=== PATIENT | male | born 1950 | race Caucasian/White ===

== ENCOUNTER 2019-08-04 12:54 | Emergency (ER) | payer MEDICARE, OTHER ==
[2019-08-04] MEDS ORDERED: Sodium Chloride 0.9% 2.5 ML Syringe FLUSH PRN (13:14)
[2019-08-04] MEDS ORDERED: Lactated Ringers 1,000 ML IV ONE (13:14)
[2019-08-04] MEDS ORDERED: Sodium Chloride 0.9% 10 ML Syringe FLUSH PRN (13:14)
--- NOTE | 2019-08-04 13:19 | EDM.PDOC ---
ED HPI GENERAL MEDICAL PROBLEM - General Chief Complaint: General Stated Complaint: BOWEL OBSTRUCTION Time Seen by Provider: 08/04/19 13:09 - History of Present Illness INITIAL COMMENTS - FREE TEXT/NARRATIVE: History of present illness: Patient presents with inability to have bowel movement chronic constipation and suspicion of small bowel obstruction from the primary care office. He has been seeing his primary care practitioner about his difficulty with stooling today he had some labs drawn and an x-ray showed an ileus with a suspicion for small bowel obstruction. He was sent over the emergency department with these fin dings patient states been several days of dull bellyache no vomiting he has had some bowel movements past last few days but his stooling has been very difficult. Eyes any prior abdominal surgeries he denies any other medical problems nothing seems to make it better or worse Review of systems: As per history of present illness and below otherwise all systems reviewed and negative. Past medical history: As per history of present illness and as reviewed below otherwise noncontributory. Surgical history: As per history of present illness and as reviewed below otherwise noncontributory. Social history: No reported history of drug or alcohol abuse. Family history: As per history of present illness and as reviewed below otherwise noncontributory. Physical exam: HEENT: Atraumatic, normocephalic, pupils reactive, negative for conjunctival pallor or scleral icterus, mucous membranes moist, throat clear, neck supple, nontender, trachea midline. Lungs: Clear to auscultation, breath sounds equal bilaterally, chest nontender. Heart: S1S2, regular, negative for clicks, rubs, or JVD. Abdomen: Soft, mild distention, nontender. Negative for masses or hepatosplenomegaly. Negative for costovertebral tenderness. Pelvis: Stable nontender. Genitourinary: Deferred. Rectal: Deferred. Extremities: Atraumatic, negative for cords or calf pain. Neurovascular unremarkable. Neuro: Awake, alert, oriented. Cranial nerves II through XII unremarkable. Cerebellum unremarkable. Motor and sensory unremarkable throughout. Exam nonfocal. Diagnostics: [] Therapeutics: [] Impression: [] Plan: CT abdomen and pelvis will be obtained and patient will be reassessed. [] Definitive disposition and diagnosis as appropriate pending reevaluation and review of above. - Related Data Allergies Allergy/AdvReac Type Severity Reaction Status Date / Time No Known Allergies Allergy Verified 08/04/19 13:08 ED ROS GENERAL - Review of Systems Review Of Systems: See Below ED EXAM, GENERAL - Physical Exam Exam: See Below Course - Vital Signs Text/Narrative:: 3:20 PM the patient was reexamined his abdomen is soft and nontender. He says he feels fine he says he was able to pass a large amount of gas while in the ED. CT scan of the abdomen pelvis read by radiology as nonobstructive suspicious for possible ileus. I recommend the patient stay in the hospital under observation with his dilated loops of bowel he declines at this time he feels reassured that he does not have an obstructive pattern he wants to go home I recommend clear liquid diet with plenty of ambulation to help pass gas and mobilize his colon. Return to the ED if worsening follow-up with a primary care doctor. Last Recorded V/S: Last Vital Signs Temp 36.6 C 08/04/19 13:09 Pulse 67 08/04/19 13:09 Resp 17 08/04/19 13:09 BP 140/89 08/04/19 13:09 Pulse Ox 96 08/04/19 13:09 - Orders/Labs/Meds Orders: Active Orders 24 hr Category Date Time Status Lactated Ringers [Ringers, Lactated] 1,000 ml Med 08/04/19 13:14 Active IV ASDIRECTED Sodium Chloride 0.9% [Saline Flush] Med 08/04/19 13:14 Active 10 ml FLUSH ASDIRECTED PRN Sodium Chloride 0.9% [Saline Flush] Med 08/04/19 13:14 Active 2.5 ml FLUSH ASDIRECTED PRN Saline Lock Insert [OM.PC] Stat Oth 08/04/19 13:14 Ordered Medication Orders Lactated Ringer's (Ringers, Lactated) 1,000 mls @ 125 mls/hr IV ASDIRECTED ONE Stop: 08/04/19 21:13 Last Admin: 08/04/19 13:32 Dose: 125 mls/hr Documented by: [id number] Sodium Chloride (Saline Flush) 10 ml FLUSH ASDIRECTED PRN PRN Reason: Keep Vein Open Last Admin: 08/04/19 13:33 Dose: 10 ml Documented by: [email or web address] Sodium Chloride (Saline Flush) 2.5 ml FLUSH ASDIRECTED PRN PRN Reason: Keep Vein Open Last Admin: 08/04/19 13:33 Dose: 2.5 ml Documented by: [email or web address] Meds: Medications Generic Name Dose Route Start Last Admin Trade Name Freq PRN Reason Stop Dose Admin Lactated Ringer's 1,000 mls @ 125 mls/hr 08/04/19 13:14 08/04/19 13:32 Ringers, Lactated IV 08/04/19 21:13 125 mls/hr ASDIRECTED ONE Administration Sodium Chloride 10 ml 08/04/19 13:14 08/04/19 13:33 Saline Flush FLUSH 10 ml ASDIRECTED PRN Administration Keep Vein Open Sodium Chloride 2.5 ml 08/04/19 13:14 08/04/19 13:33 Saline Flush FLUSH 2.5 ml ASDIRECTED PRN Administration Keep Vein Open Discontinued Medications Generic Name Dose Route Start Last Admin Trade Name Freq PRN Reason Stop Dose Admin Iopamidol 75 ml 08/04/19 14:29 08/04/19 14:31 Isovue Multipack-370 (76%) IVPUSH 08/04/19 14:30 75 ml ONETIME STA Administration Departure - Departure Time of Disposition: 15:22 Disposition: Home, Self-Care 01 Condition: Good Clinical Impression: Adynamic ileus Constipation Qualifiers: Constipation type: chronic idiopathic constipation Qualified Code(s): K59.04 - Chronic idiopathic constipation - Discharge Information *PRESCRIPTION DRUG MONITORING PROGRAM REVIEWED*: Not Applicable *COPY OF PRESCRIPTION DRUG MONITORING REPORT IN PATIENT RYAN: Not Applicable Instructions: Constipation, Adult Referrals: PCP,None [Primary Care Provider] - Forms: ED Department Discharge Additional Instructions: The following information is given to patients seen in the emergency department who are being discharged to home. This information is to outline your options for follow-up care. We provide all patients seen in our emergency department with a follow-up referral. The need for follow-up, as well as the timing and circumstances, are variable depending upon the specifics of your emergency department visit. If you don't have a primary care physician on staff, we will provide you with a referral. We always advise you to contact your personal physician following an emergency department visit to inform them of the circumstance of the visit and for follow-up with them and/or the need for any referrals to a consulting specialist. The emergency department will also refer you to a specialist when appropriate. This referral assures that you have the opportunity for follow-up care with a specialist. All of these measure are taken in an effort to provide you with optimal care, which includes your follow-up. Under all circumstances we always encourage you to contact your private physician who remains a resource for coordinating your care. When calling for follow-up care, please make the office aware that this follow-up is from your recent emergency room visit. If for any reason you are refused follow-up, please contact the [facility] Emergency Department at and asked to speak to the emergency department charge nurse. Sepsis Event Note (ED) - Evaluation Sepsis Screening Result: No Definite Risk - Focused Exam Vital Signs: Vital Signs Temp Pulse Resp BP Pulse Ox 08/04/19 13:09 36.6 C 67 17 140/89 96 - My Orders Last 24 Hours: My Active Orders 08/04/19 13:14 Lactated Ringers [Ringers, Lactated] 1,000 ml IV ASDIRECTED Sodium Chloride 0.9% [Saline Flush] 10 ml FLUSH ASDIRECTED PRN Sodium Chloride 0.9% [Saline Flush] 2.5 ml FLUSH ASDIRECTED PRN Saline Lock Insert [OM.PC] Stat - Assessment/Plan Last 24 Hours: My Active Orders 08/04/19 13:14 Lactated Ringers [Ringers, Lactated] 1,000 ml IV ASDIRECTED Sodium Chloride 0.9% [Saline Flush] 10 ml FLUSH ASDIRECTED PRN Sodium Chloride 0.9% [Saline Flush] 2.5 ml FLUSH ASDIRECTED PRN Saline Lock Insert [OM.PC] Stat
[2019-08-04] MEDS ORDERED: Iopamidol 755 MG/ML 500 ML Multipack Bottle IVPUSH STA (14:29)
--- NOTE | 2019-08-04 14:42 | CT ---
CT abdomen and pelvis Technique: Multiple axial sections were obtained from above the dome of the diaphragm inferiorly through the pubic symphysis. Intravenous contrast was utilized. No oral contrast has been given. Delayed images were also obtained through the abdomen and pelvis. Comparison: No prior abdominal imaging is available. Findings: Visualized lung bases show nothing acute. Cyst is noted within the right lobe of the liver measuring 4.7 cm. 2nd cyst is noted more inferiorly within right lobe of the liver measuring 1.2 cm. No additional abnormalities are seen within the liver. Spleen appears within normal limits. Adrenal glands show no nodule. Kidneys show symmetric contrast enhancement. Small cortical lesions are seen believed to represent cysts. Larger cyst is located within the left kidney measuring 2.1 cm. Pancreas is within normal limits. Small hiatal hernia seen. Aorta shows atherosclerotic calcification without aneurysm. No retroperitoneal adenopathy or mesenteric abnormalities are seen. Diffuse gas noted within the colon with lesser amount of gas within small bowel. Findings have the appearance of an ileus. No pelvic mass or adenopathy is seen. Minimal sigmoid diverticulosis without diverticulitis is seen. Delayed images shows contrast excretion into the ureters as well as contrast noted within the bladder. Bone window settings were reviewed which shows scattered degenerative change within the spine with no acute osseous finding. Impression: 1. Increased gas within small bowel and colon. Findings most likely due to mild ileus. Finding at this time do not appear to be obstructive. 2. Other findings as noted above believed to be chronic and nonacute. Diagnostic code #3 This report was dictated in MDT
== END 2019-08-04 15:36 | disposition home or self-care (01) ==
LOC: MW.ED 12:54
DX: K59.04 Chronic idiopathic constipation (principal); K56.0 Paralytic ileus
CPT/HCPCS: 74177; 99284; J7120; Q9967; 99283

== ENCOUNTER 2019-09-08 09:12 | Day surgery (SDC) | payer MEDICARE, OTHER ==
[~2019-09-08 09:12] MED LIST: Lactated Ringers 1,000 ML IV SCH
[2019-09-08] MEDS ORDERED: fentaNYL 100 MCG/2 ML SDV ONE (09:32)
[2019-09-08] MEDS ORDERED: Propofol 200 MG/20 ML SDV ONE (09:32)
[2019-09-08] MEDS ORDERED: Midazolam 1 MG/ML 2 ML SDV ONE (09:32)
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
[2019-09-08] MEDS ORDERED: Glycopyrrolate 0.2 MG/ML SDV ONE (12:03)
--- NOTE | 2019-09-08 12:22 | PCM.OPNOTE ---
- General Post-Op/Procedure Note Date of Surgery/Procedure: 09/08/19 Findings: see [id number] Pre Op Diagnosis: change in bowel habits and gerd Anesthesia Technique: Moderate Sedation Primary Surgeon: Linwood Davis Pathology: egd bx Complications: None Condition: Good
--- NOTE | 2019-09-08 13:14 | OR ---
SURGEON: Linwood Davis MD DATE OF PROCEDURE: 09/08/2019 PREOPERATIVE DIAGNOSES: Change in bowel habit and acid reflux. POSTOPERATIVE DIAGNOSES: Change in bowel habit and acid reflux. PROCEDURES PERFORMED: Esophagogastroduodenoscopy with biopsy and colonoscopy. DESCRIPTION OF PROCEDURE: EGD: The patient was taken to the endoscopy room, and with the OFFICE ASSISTANT, Diprivan was administered. A well-lubricated EGD scope was gently inserted through the oropharynx, down the esophagus, passing through the gastroesophageal junction, into the stomach. The mucosa was examined upon the passage. Any etiology will be noted. Once in the stomach, we continued to advance to the distal antrum, passed through the pylorus into the second portion of the duodenum. Again, the mucosa was examined for any abnormality and etiology. The scope was then retrieved back to the stomach and then retroflexed to look at the fundus of the stomach. If a biopsy was indicated, we will biopsy the antrum, body, and gastroesophageal junction. The air will be sucked out while the scope is retrieved to reduce the patient's discomfort. The patient tolerated the procedure well. There were no intraoperative complications. Dr. Davis was present through the whole procedure. Prior to surgery, a time-out had been called, the patient identified, procedure identified and antibiotic administered. The patient was taken to the endoscopy room. A time out was called, patient identified, and procedure identified. Diprivan was then administrated. Patient went from awake to sleep, hearing doctor talking or door closing is normal. Perineum inspection and digital examination were then performed. A well- lubricated colonoscope was gently inserted through the rectum, advanced past the rectosigmoid junction, the descending colon, splenic flexure, transverse colon, hepatic flexure, ascending colon, arrived to the cecum. Cecum was identified as dictated in the finding. Then the scope was carefully withdrawn while attention was paid to the mucosal surface for any abnormality. Air will be sucked out during the scope withdrawal. At the rectum, retroflexed to examine any rectal diseases, fistula or hemorrhoids. Patient tolerated procedure well. There were no intraoperative complications, and Dr. Davis was present throughout the whole procedure. FINDINGS: EGD findings: 1. The patient is easily sedated with OFFICE ASSISTANT and Diprivan, the patient is soundly snoring. 2. Proximal esophagus and oropharynx are free of disease. GE junction at 40 shows a marked flame-like structure and concerned about Colin esophagitis and also has moderate acid reflux. Stomach rugae are normal in appearance. Antrum looks fine. Duodenum, very difficult to blow up the duodenum, but do not see any etiology. Retroflexed look at the fundus of stomach, again it is very difficult to blow up the fundus of stomach, and suspect that maybe the patient has a large hiatal hernia as we can clearly see the beating of the heart, but otherwise, no bile, food particle, blood, or ulcer. Biopsy done at antrum, body, and GE junction at 40 and sucked out the gas while scope pulling out. Colonoscopy findings: 1. The patient is easily sedated with OFFICE ASSISTANT and Diprivan, the patient is soundly snoring. 2. Bowel prep is excellent, not a speck of semi-formed stool, very little liquid stool. Colon is rather straightforward. Cecum indicated by ileocecal fold, one-to-one indentation, appendiceal orifice, and light emittance. Mucosa was examined upon scope pulling out. The patient has a mild diverticulosis on the left colon. No signs or symptoms of diverticulitis. No polyp, mass, growth, inflammation, stricture, ulceration, AV malformation, none of those. The patient has mild internal hemorrhoids. The patient would benefit from repeat colonoscopy in 10 years from today or if clinically indicated otherwise. PATRICK / KRISSY /[id number]
--- NOTE | 2019-09-08 13:34 | PCM.POSTAN ---
POST ANESTHESIA ASSESSMENT - MENTAL STATUS Mental Status: Alert, Oriented - VITAL SIGNS Vital Signs: Last Vital Signs Temp 96.8 F L 09/08/19 12:45 Pulse 62 09/08/19 12:45 Resp 16 09/08/19 12:45 BP 110/64 09/08/19 12:45 Pulse Ox 97 09/08/19 12:45 - RESPIRATORY Respiratory Status: Respiratory Rate WNL, Airway Patent, O2 Saturation Stable - CARDIOVASCULAR CV Status: Pulse Rate WNL, Blood Pressure Stable - GASTROINTESTINAL GI Status: No Symptoms - POST OP HYDRATION Hydration Status: Adequate & Stable
--- NOTE | 2019-09-08 13:34 | PCM48HPAN ---
Post Anesthesia Note - EVALUATION WITHIN 48HRS OF ANESTHETIC Vital Signs in Normal Range: Yes Patient Participated in Evaluation: Yes Respiratory Function Stable: Yes Airway Patent: Yes Cardiovascular Function Stable: Yes Hydration Status Stable: Yes Pain Control Satisfactory: Yes Nausea and Vomiting Control Satisfactory: Yes Mental Status Recovered: Yes Vital Signs: Last Vital Signs Temp 96.8 F L 09/08/19 12:45 Pulse 62 09/08/19 12:45 Resp 16 09/08/19 12:45 BP 110/64 09/08/19 12:45 Pulse Ox 97 09/08/19 12:45
== END 2019-09-08 13:10 | disposition home or self-care (01) ==
LOC: MW.SDS 09:12
PROVIDERS: ATTEND Surgery
DX: K57.30 Diverticulosis of large intestine without perforation or abscess without bleeding (principal); K64.8 Other hemorrhoids; K21.0 Gastro-esophageal reflux disease with esophagitis; E78.00 Pure hypercholesterolemia, unspecified; Z79.899 Other long term (current) drug therapy
CPT/HCPCS: 43239; 45378; J2250; J2704; J3010; J3490; J7120

== ENCOUNTER 2019-12-05 17:24 | Emergency (ER) | payer MEDICARE, OTHER ==
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
== END 2019-12-05 19:35 | disposition home or self-care (01) ==
LOC: MW.ED 17:24
DX: U07.1 COVID-19 (principal); E78.5 Hyperlipidemia, unspecified; Z79.899 Other long term (current) drug therapy
CPT/HCPCS: 99284; U0002; 99283

== ENCOUNTER 2019-12-13 23:14 | Emergency (ER) | payer MEDICARE, OTHER ==
[2019-12-14 01:34] LABS: BLOOD UREA NITROGEN,BUN 14 mg/dL (7.0-18.0); CARBON DIOXIDE,CO2 25.7 mmol/L (21.0-32.0); CHLORIDE,CL 100 mmol/L (98-107); GLUCOSE RANDOM 103 mg/dL (74-106); POTASSIUM,K 4.1 mmol/L (3.5-5.1); SODIUM,NA 135 mmol/L (136-148)
--- NOTE | 2019-12-14 01:42 | CR ---
Indication: Dyspnea, COVID positive Technique: Chest 1 view Comparison: Chest x-ray 12/11/2019 Findings/Impression: Cardiovascular and mediastinum: Heart size and vasculature are normal in caliber and appearance. Lungs and pleural space: No pleural effusion or pneumothorax. Bronchial wall thickening with some patchy opacities consistent with pneumonia which are fairly similar to the prior exam. Bones and soft tissues: Right glenohumeral osteoarthritis. Dictated by Hugo Reyes MD @ Dec 14 2019 1:39AM Signed by Dr. Hugo Reyes @ Dec 14 2019 1:40AM
[2019-12-14] MEDS ORDERED: Iopamidol 755 Mg/ML 100 ML Bottle IVPUSH STA (02:40)
[2019-12-14] MEDS ORDERED: Acetaminophen 500 MG Tab PO ONE (02:46)
--- NOTE | 2019-12-14 03:13 | CT ---
INDICATION: COVID and D-dimer elevation TECHNIQUE: CT chest PE was acquired with 60 cc Isovue 370 contrast. COMPARISON: None. FINDINGS: Heart and vasculature: Contrast opacification of the pulmonary arterial tree is adequate. No sign of pulmonary embolism. Thoracic aorta is normal in caliber with moderate atherosclerotic calcification. No pericardial effusion. Coronary atherosclerosis. Lungs and pleural: No pleural effusion or pneumothorax. Extensive bilateral ground-glass opacities greatest within the posterior aspect of the hemithoraces. Lymph nodes/mediastinum: Subcentimeter mediastinal lymph nodes. Chest wall: No masses. Upper abdomen: Hepatic cyst at the dome measuring 4.1 centimeters. Bones: Unremarkable for age. IMPRESSION: 1. No evidence of pulmonary embolus. 2. Extensive bilateral ground-glass opacities consistent with a viral pneumonia, presumed COVID-19 pneumonia in this clinical setting. Please note that all CT scans at this facility use dose modulation, iterative reconstruction, and/or weight-based dosing when appropriate to reduce radiation dose to as low as reasonably achievable. Dictated by Hugo Reyes MD @ Dec 14 2019 3:06AM Signed by Dr. Hugo Reyes @ Dec 14 2019 3:11AM
[2019-12-14] MEDS ORDERED: Dexamethasone 4 MG Tab PO ONE (03:36)
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
== END 2019-12-14 06:35 ==
LOC: MW.ED 23:14
DX: J96.01 Acute respiratory failure with hypoxia (principal); U07.1 COVID-19; E78.00 Pure hypercholesterolemia, unspecified; Z79.899 Other long term (current) drug therapy
CPT/HCPCS: 36415; 71045; 71275; 80048; 85025; 85379; 85610; 86850; 86900; 86901; 99285; A9270; J8540; Q9967; U0002